=== PATIENT | male | born 1955 | race Caucasian/White ===

== ENCOUNTER → 2019-04-25 | Outpatient (CLI) | payer OTHER ==
[~2019-04-25] MED LIST: ASPIRIN EC81 M1 OR; CELEXA 20 MG TA20 M1 OR; FISHOIL OR; IBUPROFEN 200200 M1; LOVASTAT20 OR; THERA-M CAPLET1 EACH OR
== END ==
LOC: SJCVCIMAG 15:18
DX: I25.119 Atherosclerotic heart disease of native coronary artery with unspecified angina pectoris (principal); I65.23 Occlusion and stenosis of bilateral carotid arteries